=== PATIENT | female | born 1990 | race African-American/Black ===

== ENCOUNTER 2019-10-09 23:21 | Emergency (ER) | payer SELFPAY ==
[~2019-10-09] VITALS: Ht 170.2 cm; Wt 113.4 kg
[2019-10-10] MEDS ORDERED: SODIUM CHLORIDE 0.9% 1000ML 1,000 ML ONE (00:33)
--- NOTE | 2019-10-10 00:49 | Diagnostic Imaging Report ---
EXAMINATION: CXR 2 VIEW - HOPD INDICATION: ^palpatations COMPARISON: None FINDINGS: TUBES and LINES: None. LUNGS: Normal lung volumes. Lungs are clear. No consolidations. PLEURA: No pleural effusion or pneumothorax. HEART AND MEDIASTINUM: The cardiomediastinal silhouette is unremarkable. BONES AND SOFT TISSUES: No acute osseous lesion. Soft tissues are unremarkable. UPPER ABDOMEN: No free air under the diaphragm. IMPRESSION: No acute thoracic radiographic abnormality. Signed by: Danny Wiley MD on 10/10/2019 12:46 AM
[2019-10-10] MEDS ORDERED: ONDANSETRON HCL 4 MG ORAL DISINTEGRATING TAB PO ONE (01:00)
--- NOTE | 2019-10-10 01:10 | NUR ---
CALLED [facility] ER. REQUEST FOR NS TO ASSIST WITH PT'S IV.
[2019-10-10] MEDS ORDERED: ONDANSETRON HCL 4 MG ORAL DISINTEGRATING TAB ONE (01:21)
--- NOTE | 2019-10-10 01:40 | NUR ---
MELLISA COLEMAN FROM MAIN ER HERE TO EST. HUNTERL
[2019-10-10] MEDS ORDERED: SODIUM CHLORIDE 0.9% 1000ML 1,000 ML IV SCH ×2 (02:15)
[2019-10-10 02:20] LABS: BASOPHILS % 0.3 % (0.0-1.0); HEMATOCRIT 38.5 % (34.2-44.1); HEMOGLOBIN 12.7 g/dL (12.0-16.0); LYMPHOCYTES # (AUTO) 1.7 (1.0-3.2); MEAN CORPUSCULAR HEMOGLOBIN 28.9 pg (28-32); MEAN CORPUSCULAR VOLUME 87.7 fL (81-99); MONOCYTES # (AUTO) 0.5 (0.2-0.8); MONOCYTES % 4.5 % (4.4-11.3); NEUTROPHILS # (AUTO) 8.3 (2.1-6.9); NEUTROPHILS % 78.8 % (38.7-80.0); PLATELET COUNT 245 x10e3/uL (140-360); RED BLOOD COUNT 4.39 x10e6/uL (3.6-5.1); RED CELL DISTRIBUTION WIDTH 12.2 % (11.7-14.4)
--- NOTE | 2019-10-10 03:27 | NUR ---
AWAITING LAB RESULTS
--- NOTE | 2019-10-10 03:40 | NUR ---
CALLED LAB FOR CMP RESULTS. PER LAB RESULTS DID NOT CROSS OVER AND SHE WOULD GET THEM TO US STAT
[2019-10-10 04:01] LABS: ALANINE AMINOTRANSFERASE 29 IU/L (0-55); ALBUMIN 3.6 g/dL (3.5-5.0); ALBUMIN/GLOBULIN RATIO 0.9 (0.8-2.0); ALKALINE PHOSPHATASE 72 IU/L (40-150); ANION GAP 15.7 mmol/L (8-16); BLOOD UREA NITROGEN 14 mg/dL (7-26); BUN/CREATININE RATIO 17 (6-25); CARBON DIOXIDE 23 mmol/L (22-29); CHLORIDE 104 mmol/L (98-107); CREATININE, SERUM 0.84 mg/dL (0.57-1.11); EST GLOMERULAR FILTRATION RATE > 60 ML/MIN (60-); GLUCOSE 161 mg/dL (74-118); POTASSIUM 3.7 mmol/L (3.5-5.1); SODIUM 139 mmol/L (136-145)
--- NOTE | 2019-10-10 04:06 | NUR ---
PT RESTING QUIETLY . NO COMPLAINTS AT THIS TIME. AWAKENS EASILY WHEN DOOR OPENED.
[2019-10-10 04:25] VITALS: BP 129/65
--- NOTE | 2019-10-10 06:49 | Emergency Department Note ---
History of Present Illnes History of Present Illness Chief Complaint: General Medicine Complaints History of Present Illness This is a 28 year old female who presents with chief complaint of palpitations. Onset was approximately 30 minutes prior to arrival. She was driving and had left a [employer] where she had done 3 shots and ate some cupcakes which now she believes was edible marijuana (did not know at time of ingestion). She states she rarely drinks alcohol less than once a month and does not use any drugs. She denies any chest pain. No syncope, no SOB, +N/V X2, No diaphoresis. No numbness, tingling, weakness. No slurred speech. Historian: Patient Arrival Mode: Car [employer] Required: No Onset (how long ago): minute(s) Timing of current episode: constant Progression: worsening Chronicity: new Context: Denies recent illness, Denies recent surgery, Denies recent immobilization, Denies recent travel, Denies trauma/injury, Denies new medications Relieving factors: none Exacerbating factors: none Past Medical/Family History Physician Review I have reviewed the patient's past medical and family history. Any updates have been documented here. Past Medical History Recent Fever: No Clinical Suspicion of Infectio: No New/Unexplained Change in Ment: No Past Medical History: None Other Medical History: Works as RN at [employer] Past Surgical History: None Social History Smoking Cessation: Never Smoker Alcohol Use: Occasional Any Illegal Drug Use: No (ATE EDIBLE CUPCAKES TONIG) Physically hurt or threatened: No Other Any Pre-Existing Lines (PICC,: No Review of Systems Review of Systems Cardiovascular: Reports palpitations Respiratory: Denies cough, Denies hemoptysis, Denies pain on inspiration, Denies pain with cough, Denies dyspnea, Denies dyspnea on exertion Gastrointestinal: Reports nausea, Reports vomiting (X2); Denies abdominal pain Genitourinary: Reports no symptoms Integumentary: Reports no symptoms; Denies rash Neurological: Reports no symptoms Hematological/Lymphatic: Reports no symptoms Review of other systems: All other systems negative Physical Exam Related Data Allergies: Coded Allergies: No Known Drug Allergies (Verified Allergy, Unknown, 10/10/19) Triage Vital Signs Vital Signs Date Time Temp Pulse Resp B/P (MAP) Pulse Ox O2 Delivery O2 Flow Rate FiO2 10/09/19 23:21 97.6 161 28 143/67 100 Room Air Physical Exam CONSTITUTIONAL Constitutional: Present well-developed, Present well-nourished HENT HENT: Present normocephalic, Present atraumatic, Present oropharynx clear/moist, Present nose normal HENT L/R: Present left ext ear normal, Present right ext ear normal EYES NECK Neck: Present ROM normal PULMONARY Pulmonary: Present effort normal, Present breath sounds normal CARDIOVASCULAR Cardiovascular: Present intact distal pulses, Present capillary refill normal, Present tachycardia GASTROINTESTINAL Abdominal: Present soft, Present nontender, Present bowel sounds normal GENITOURINARY SKIN Skin: Present warm; Absent rash MUSCULOSKELETAL NEUROLOGICAL Neurological: Present alert, Present oriented x 3 PSYCHOLOGICAL Psychological: Present other (anxious) Results Laboratory Lab results reviewed: Yes Laboratory comments HCG negative, WBC 10.5, Hem 12.7, HCT 38.5, PLT 245. negative troponin. 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 There is no ST elevation or depression, there are no inverted T waves. No ectopy. Normal axis. Machine reading EKG as Afib. Will get rhythm strip to confirm. Assessment & Plan Medical Decision Making MDM Patient with initial EKG with HR 145, concerning for Afib. However, rhythm appeared regular - but difficult to guage given rapid HR. Obtained 12 lead rhythm strip and confirmed in sinus rhythm. Suspect symptoms related to edible THC muffin the patient ate at [employer]. Reassessment Reassessment time: 00:20 Reassessment 00:20 feels much better. No longer having palpitations. Now feels fatigue, like "just ran a marathon". 02:50 HR 80, patient asymptomatic. Assessment & Plan Final Impression: (1) Heart palpitations Depart Disposition: HOME, SELF-CARE Last Vital Signs Date Time Temp Pulse Resp B/P (MAP) Pulse Ox O2 Delivery O2 Flow Rate FiO2 10/09/19 23:21 97.6 161 28 143/67 100 Room Air Medications in the ED Sodium Chloride 1,000 ml @ 0 mls/hr Q0M IV ; Start 10/10/19 at 00:00; Stop 10/10/19 at 00:56; Status DC Ondansetron HCl 4 mg ONCE ONCE PO Last administered on 10/10/19at 01:20; Admin Dose 4 MG; Start 10/10/19 at 01:00; Stop 10/10/19 at 01:01; Status UNV Sodium Chloride 1,000 ml @ STK-MED ONCE .ROUTE ; Start 10/10/19 at 00:33; Stop 10/10/19 at 00:56; Status DC Sodium Chloride 1,000 ml @ 0 mls/hr Q0M IV ; Start 10/10/19 at 02:15; Stop 11/09/19 at 02:14; Status UNV SELENA FLORES MD Oct 10, 2019 02:24
== END 2019-10-10 04:29 | disposition home or self-care (01) ==
LOC: FSED 23:40
DX: R00.2 Palpitations (principal); R11.2 Nausea with vomiting, unspecified
CPT/HCPCS: 36415; 71046; 80053 ×2; 84484 ×2; 85025 ×2; 93005; 99284; J7030; Q0162